=== PATIENT | male | born 1965 | race Caucasian/White ===

== ENCOUNTER → 2017-12-03 | Outpatient (REF) | LOC: M SMT 13:08 | DX: Z00.00 Encounter for general adult medical examination without abnormal findings (principal) ==

== ENCOUNTER → 2021-03-28 | Outpatient (REF) ==
--- NOTE | 2021-03-28 15:48 | REP ---
INDICATION: ABNORMAL WEIGHT GAIN COMPARISON: None. TECHNIQUE: Internal rotation, external rotation, and Y view. FINDINGS: Evidence for satisfactory right shoulder replacement. Osteophyte formation along the inferior margin of the residual femoral neck is identified. Subacromial space appears narrowed to 7.7 mm IMPRESSION: Right shoulder replacement. <Electronically signed by Jakub Redding > 03/28/21 [id number]
== END ==
LOC: M PLAIMG 09:49
PROVIDERS: ATTEND Internal Medicine
DX: Z00.00 Encounter for general adult medical examination without abnormal findings (principal)

== ENCOUNTER → 2023-06-24 | Outpatient (REF) | payer OTHER, MEDICARE | LOC: M LAB REF 16:24 | PROVIDERS: ATTEND Surgery | DX: D17.0 Benign lipomatous neoplasm of skin and subcutaneous tissue of head, face and neck (principal) ==

== ENCOUNTER → 2023-09-30 | Outpatient (REF) | LOC: M PLAIMG 08:23 | PROVIDERS: ATTEND Internal Medicine | DX: R06.02 Shortness of breath (principal) ==